=== PATIENT | female | born 1985 | race American Indian/Alaskan Native ===

== ENCOUNTER 2020-11-27 00:51 | Emergency (ER) | payer MEDICAID ==
[2020-11-27 01:15] VITALS: BP 155/96
[2020-11-27] MEDS ORDERED: ASPIRIN 325 MG TAB PO ONE (01:15)
[2020-11-27 01:44] LABS: Basophils % (Auto) 0.4 % (0.0-1.8); Eosinophils # (Auto) 0.3 K/mm3 (0.0-0.4); Eosinophils % (Auto) 3.7 % (0.0-4.3); Hematocrit 36.8 % (30.3-42.9); Hemoglobin 12.3 gm/dl (10.1-14.3); Lymphocytes # (Auto) 3.6 K/mm3 (1.2-5.4); Lymphocytes % (Auto) 49.2 % (13.4-35.0); Mean Corpuscular HGB Conc 33 % (30-34); Mean Corpuscular Volume 87 fl (79-97); Monocytes # (Auto) 0.5 K/mm3 (0.0-0.8); Monocytes % (Auto) 6.5 % (0.0-7.3); Platelet Count 323 K/mm3 (140-440); Red Blood Count 4.24 M/mm3 (3.65-5.03); Red Cell Distribution Width 13.1 % (13.2-15.2)
[2020-11-27] MEDS ORDERED: IPRATROPIUM/ALBUTEROL SULFATE 3 ML AMPUL.NEB IH ONE (01:57)
[2020-11-27] MEDS ORDERED: methylPREDNISolone Sod Succinate 125 MG/2 ML INJ IM ONE (01:57)
--- NOTE | 2020-11-27 02:04 | Emergency Department Report ---
ED Shortness of Breath HPI - General Chief Complaint: Adult Asthma Stated Complaint: CHEST TIGHTNESS/ASTHMA Source: patient Mode of arrival: Ambulatory Limitations: No Limitations - History of Present Illness Initial Comments: Patient is a 35-year-old -Citizen Of [place] female with history of asthma who presents to the ED with acute onset persistent shortness of breath, dry cough and wheezing as well as nasal and sinus congestion for the last 12 hours. Patient states that she has used her albuterol inhaler with no relief and actually ran out of her inhalers. Patient states that she would like a refill on the same but would like to be evaluated for her shortness of breath. Patient states that her symptoms are typical of her chronic asthma with exacerbations. Patient denies chest pain, dizziness, syncope, fever, chills, nausea, vomiting, sore throat, abdominal pain, change in vision, diarrhea or dysuria and urinary frequency and urgency. MD Complaint: shortness of breath, cough, "asthma attack" -: Sudden, hour(s) (12) Radiation: back Severity: mild Pain Scale: 3 Quality: aching, other (chest tightness) Consistency: constant Improves With: bronchodilators (ran out of medications) Worsens With: nothing Known History Of: asthma Context: allergen exposure Associated Symptoms: denies other symptoms, cough Treatments Prior to Arrival: none - Related Data Home Oxygen Therapy: No Previous Rx's Medication Instructions Recorded Last Taken Type Albuterol Sulfate [Proventil Hfa] 1 - 2 puff IH Q6H PRN #1 hfa.aer.ad 11/27/20 Unknown Rx Benzonatate [Tessalon Perles] 100 mg PO Q8HR #30 capsule 11/27/20 Unknown Rx Mometasone/Formoterol [Dulera 200 1 - 2 puff IH Q6H PRN #1 hfa.aer.ad 11/27/20 Unknown Rx Mcg-5 Mcg Inhaler] methylPREDNISolone [Medrol 4MG 4 mg PO DAILY #21 tab.ds.pk 11/27/20 Unknown Rx DOSEPAK (21 tabs)] Allergies Allergy/AdvReac Type Severity Reaction Status Date / Time shellfish derived Allergy Unknown Verified 11/27/20 01:09 ED Review of Systems ROS: Stated complaint: CHEST TIGHTNESS/ASTHMA Other details as noted in HPI Constitutional: denies: chills, fever Eyes: denies: eye pain, eye discharge, vision change ENT: congestion. denies: ear pain, throat pain Respiratory: cough, shortness of breath, wheezing Cardiovascular: denies: chest pain, palpitations Endocrine: no symptoms reported Gastrointestinal: denies: abdominal pain, nausea, diarrhea Genitourinary: denies: urgency, dysuria, discharge Musculoskeletal: denies: back pain, joint swelling, arthralgia Skin: denies: rash, lesions Neurological: denies: headache, weakness, paresthesias Psychiatric: denies: anxiety, depression Hematological/Lymphatic: denies: easy bleeding, easy bruising ED Past Medical Hx - Past Medical History Previous Medical History?: No Hx Asthma: Yes - Surgical History Past Surgical History?: No - Social History Smoking Status: Never Smoker Substance Use Type: Alcohol - Medications Home Medications: Home Medications Medication Instructions Recorded Confirmed Last Taken Type Albuterol Sulfate [Proventil Hfa] 1 - 2 puff IH Q6H PRN #1 hfa.aer.ad 11/27/20 Unknown Rx Benzonatate [Tessalon Perles] 100 mg PO Q8HR #30 capsule 11/27/20 Unknown Rx Mometasone/Formoterol [Dulera 200 1 - 2 puff IH Q6H PRN #1 hfa.aer.ad 11/27/20 Unknown Rx Mcg-5 Mcg Inhaler] methylPREDNISolone [Medrol 4MG 4 mg PO DAILY #21 tab.ds.pk 11/27/20 Unknown Rx DOSEPAK (21 tabs)] ED Physical Exam - General Limitations: No Limitations General appearance: alert, in no apparent distress - Head Head exam: Present: atraumatic, normocephalic, normal inspection - Eye Eye exam: Present: normal appearance, PERRL, EOMI Pupils: Present: normal accommodation - ENT ENT exam: Present: normal orophraynx, mucous membranes moist, TM's normal bilaterally, normal external ear exam, other (Grossly congested nasal passages) - Neck Neck exam: Present: normal inspection, full ROM - Respiratory Respiratory exam: Present: wheezes (Mildly diffuse coarse wheezes throughout). Absent: respiratory distress, rales, rhonchi, stridor, chest wall tenderness, accessory muscle use, decreased breath sounds, prolonged expiratory - Cardiovascular Cardiovascular Exam: Present: regular rate, normal rhythm, normal heart sounds. Absent: systolic murmur, diastolic murmur, rubs, gallop - GI/Abdominal GI/Abdominal exam: Present: soft, normal bowel sounds. Absent: tenderness, rebound, hyperactive bowel sounds, hypoactive bowel sounds - Extremities Exam Extremities exam: Present: normal inspection, full ROM, normal capillary refill - Back Exam Back exam: Present: normal inspection, full ROM. Absent: CVA tenderness (L), paraspinal tenderness, vertebral tenderness - Neurological Exam Neurological exam: Present: alert, oriented X3, CN II-XII intact, normal gait, reflexes normal - Psychiatric Psychiatric exam: Present: normal affect, normal mood - Skin Skin exam: Present: warm, dry, intact, normal color. Absent: rash ED Course Vital Signs 11/27/20 00:59 Temperature 98.3 F Pulse Rate 85 Respiratory 18 Rate Blood Pressure 155/96 O2 Sat by Pulse 95 Oximetry ED Medical Decision Making - Lab Data Result diagrams: 11/27/20 01:20 11/27/20 01:20 - Radiology Data Radiology results: report reviewed, image reviewed Findings [facility] [address] [place] [address] XRay Report Signed Patient: ELVIE MAURO MR#: [id number] : 1985 Acct:[id number] Age/Sex: 35 / F ADM Date: 11/27/20 Loc: ED Attending Dr: Ordering Physician: KATERINA AYOUB MD Date of Service: 11/27/20 Procedure(s): XR chest 1V ap Accession Number(s): [id number] cc: KATERINA AYOUB MD Fluoro Time In Minutes: XR chest 1V ap INDICATION / CLINICAL INFORMATION: Chest Pain COMPARISON: None available. FINDINGS: SUPPORT DEVICES: None. HEART / MEDIASTINUM: No significant abnormality. LUNGS / PLEURA: Lungs are clear. Costophrenic sulci are sharp. No pneumothorax. ADDITIONAL FINDINGS: No significant additional findings. IMPRESSION: 1. No acute findings. Signer Name: Allen Jackson MD Signed: 11/27/2020 3:12 AM Workstation Name: [id number] Transcribed By: ALEX Dictated By: Allen Jackson MD Electronically Authenticated By: Allen Jackson MD Signed Date/Time: 11/27/20311 DD/ 1 TD/TT: - Medical Decision Making This is a 35-year-old -Citizen [place] female with history of asthma who presents to the ED with acute onset persistent shortness of breath, dry cough and wheezing as well as nasal and sinus congestion for the last 12 hours. Patient states that she has used her albuterol inhaler with no relief and actually ran out of her inhalers. Patient states that she would like a refill on the same but would like to be evaluated for her shortness of breath. Patient states that her symptoms are typical of her chronic asthma with exacerbations. In the ED, patient is alert and oriented x3 and is not in distress. Patient was treated for pain in the ED and also given DuoNeb treatment as well as steroids. Chest x-ray shows no acute cardiopulmonary abnormalities or pneumonitis. On reevaluation, patient's wheezing resolved and patient felt better and oxygen saturation ranged from 98% to 100% in room air. Patient was discharged home on medications and advised to follow-up with her primary care physician in 5 to 7 days for reevaluation or return to the ED immediately if symptoms get worse. - Differential Diagnosis Asthma; bronchitis; URI; pneumonia Critical care attestation.: If time is entered above; I have spent that time in minutes in the direct care of this critically ill patient, excluding procedure time. ED Disposition Clinical Impression: Acute bronchitis with asthma with acute exacerbation, Shortness of breath Disposition: DC-01 TO HOME OR SELFCARE Is pt being admited?: No Does the pt Need Aspirin: No Condition: Stable Instructions: Shortness of Breath, Adult, [id number], Cough, Adult, [id number], Asthma, Adult, [id number], Acute Bronchitis (ED) Additional Instructions: Take medication with food, drink plenty of fluids and follow-up with your primary care physician in 7 to 10 days for reevaluation. Return to the ED immediately if symptoms get worse. Prescriptions: Mometasone/Formoterol [Dulera 200 Mcg-5 Mcg Inhaler] 1 - 2 puff IH Q6H PRN #1 hfa.aer.ad PRN Reason: Dyspnea methylPREDNISolone [Medrol 4MG DOSEPAK (21 tabs)] 4 mg PO DAILY #21 tab.ds.pk Albuterol Sulfate [Proventil Hfa] 1 - 2 puff IH Q6H PRN #1 hfa.aer.ad PRN Reason: Dyspnea Benzonatate [Tessalon Perles] 100 mg PO Q8HR #30 capsule Referrals: [facility] [Provider Group] - 3-5 Days EMRE AWAD MD [Staff Physician] - 3-5 Days Time of Disposition: 02:00 Print Language: GEORGIAN
[2020-11-27 02:05] LABS: Hemolysis Index 3
[2020-11-27 02:18] LABS: BUN/Creatinine Ratio 1; Blood Urea Nitrogen 1 mg/dL (7-17)
--- NOTE | 2020-11-27 03:16 | XRay Report ---
XR chest 1V ap INDICATION / CLINICAL INFORMATION: Chest Pain COMPARISON: None available. FINDINGS: SUPPORT DEVICES: None. HEART / MEDIASTINUM: No significant abnormality. LUNGS / PLEURA: Lungs are clear. Costophrenic sulci are sharp. No pneumothorax. ADDITIONAL FINDINGS: No significant additional findings. IMPRESSION: 1. No acute findings. Signer Name: Allen Jackson MD Signed: 11/27/2020 3:12 AM Workstation Name: [id number]
== END 2020-11-27 02:54 | disposition home or self-care (01) ==
LOC: ED 00:51
DX: J45.901 Unspecified asthma with (acute) exacerbation (principal); R06.02 Shortness of breath; Z79.899 Other long term (current) drug therapy; Z91.013 Allergy to seafood
CPT/HCPCS: 36415; 71045; 80048; 84484; 84703; 85025; 93005; 94640; 96372; 99284; J2930